=== PATIENT | female | born 1980 ===

== ENCOUNTER 2020-12-03 01:48 | Emergency (ER) | payer OTHER ==
--- NOTE | 2020-12-03 02:10 | EDM.PDOC ---
ED HPI GENERAL MEDICAL PROBLEM - General Chief Complaint: Lower Extremity Injury/Pain Stated Complaint: FALL AT WORK, RIGHT LEG PAIN Time Seen by Provider: 12/03/20 02:05 Source of Information: Reports: Patient. Denies: Old Records (No [facility] records available) History Limitations: Reports: No Limitations - History of Present Illness INITIAL COMMENTS - FREE TEXT/NARRATIVE: Patient was brought to the emergency room via transport vehicle from [facility] for evaluation of a Workmen's Compensation injury, which occurred at about 1:05 AM this morning. The patient accidentally tripped over the forks of a forklift landing forward onto her hands and landing on her right side. She complains of 7/10 mid right thigh pain with some difficulty bearing weight and walking. She denies any hip pain, neck/back pain, paresthesias, head injury, neurological deficits, or other complaints or injuries. She has not injured this area in the past. The patient also has some mild abrasions on her palms bilaterally with no history of foreign body, etc. No recent history of abdominal pain, heartburn, nausea, diarrhea, melena, gross hematochezia, or any food intolerance, including fatty foods, etc., although she has just recovered from the stomach flu. The patient also denies any recent fever, cough, wheezing, dyspnea, etc.. Onset: Today, Sudden Onset Date: 12/03/20 Onset Time: 01:05 Duration: Constant Location: Reports: Upper Extremity, Left, Upper Extremity, Right, Lower Extremity, Right. Denies: Head, Face, Neck, Chest, Abdomen, Back, Pelvis, Lower Extremity, Left, Radiates to Quality: Reports: Ache Severity: Moderate Improves with: Reports: Rest Worsens with: Reports: Movement Context: Reports: Other (As above). Denies: Sick Contact, Trauma Associated Symptoms: Denies: Confusion, Chest Pain, Cough, Diaphoresis, Fever/Chills, Headaches, Loss of Appetite, Malaise, Nausea/Vomiting, Seizure, Shortness of Breath, Syncope, Weakness Treatments ELECTRICAL TECHNICIAN: Reports: Cold Therapy Right Upper Leg Pain Score (Numeric/FACES): 7 - Related Data Allergies Allergy/AdvReac Type Severity Reaction Status Date / Time No Known Drug Allergies Allergy Other Verified 12/03/20 01:49 Home Meds: Home Meds . [No Known Home Meds] 12/03/20 [History] Past Medical History HEENT History: Reports: Impaired Vision, Other (See Below) Other HEENT History: The patient was glasses Cardiovascular History: Reports: None. Denies: Heart Murmur, Hypertension Respiratory History: Reports: None. Denies: Asthma, COPD CERTIFIED MEDICAL CODER History: Reports: , Spontaneous : 7 Para: 5 LMP (Approximate): Other (See Below) Other CERTIFIED MEDICAL CODER History: Normal LMP 1 week ago. SAB x2 requiring D&Cs. Otherwise, full term without complications during pregnancies or deliveries. Musculoskeletal History: Reports: None. Denies: Arthritis, Back Pain, Chronic, Fracture, Neck Pain, Chronic, Osteoarthritis Neurological History: Reports: Vertigo Endocrine/Metabolic History: Reports: Obesity/BMI 30+. Denies: Diabetes, Gestational, Diabetes, Type I, Diabetes, Type II, Diabetes Mellitus, Type 3c, IDDM Oncologic (Cancer) History: Reports: Hodgkin's Lymphoma, Other (See Below) Other Oncologic History: Hodgkin's lymphoma in her 20s currently in remission. - Past Surgical History Female Surgical History: Reports: D&C, Dilitation & Evacuation, Other (See Below). Denies: Section, Tubal Ligation Other Female Surgeries/Procedures: D&Cs x2 secondary to SABs. Social & Family History - Tobacco Use Tobacco Use Status *Q: Current Every Day Tobacco User Tobacco Use Within Last Twelve Months: Cigarettes Years of Tobacco use: 29 Packs/Tins Daily: 0.5 Packs/Tins Daily Comment: Started smoking at age 11 with maximum use of 0.75 packs/day. Used Tobacco, but Quit: No Smoking Cessation Information Provided To Patient: Yes Second Hand Smoke Exposure: Yes Source of Second Hand Smoke Exposure: smokes Second Hand Smoke Education Provided: Yes - Living Situation & Occupation Living situation: Reports: , with Family Occupation: Employed ([employer]) Review of Systems - Review of Systems Review Of Systems: Comprehensive ROS is negative, except as noted in HPI. ED EXAM, GENERAL - Physical Exam Exam: See Below Exam Limited By: No Limitations General Appearance: Alert, WD/WN, No Apparent Distress Head: Atraumatic, Normocephalic. No: Facial Swelling, Facial Tenderness, Sinus Tenderness Neck: Normal Inspection, Supple, Non-Tender, Full Range of Motion. No: Lymphadenopathy (L), Lymphadenopathy (R), Thyromegaly Respiratory/Chest: No Respiratory Distress, Lungs Clear, Normal Breath Sounds, No Accessory Muscle Use, Chest Non-Tender. No: Pleural Rub, Retractions Cardiovascular: Normal Peripheral Pulses, Regular Rate, Rhythm, No Edema, No Gallop, No JVD, No Murmur, No Rub. No: Gallop/S3, Gallop/S4, Friction Rub Peripheral Pulses: 2+: Radial (L), Radial (R), Dorsalis Pedis (R) GI/Abdominal: Normal Bowel Sounds, Soft, Non-Tender, No Organomegaly, No Distention, No Abnormal Bruit, No Mass, Pelvis Stable, Other (Obese). No: Guarding (Female) Exam: Deferred Rectal (Female) Exam: Deferred Back Exam: Normal Inspection, Full Range of Motion. No: CVA Tenderness (L), CVA Tenderness (R), Muscle Spasm Extremities: No Pedal Edema, Normal Capillary Refill, Leg Pain (Mild palpation pain over the mid lateral right femur region with minimal localized swelling and no significant ecchymosis, deformity, crepitation, or evidence of fracture. No evidence of injury to the right knee, hip, ankle, etc.. ), Limited Range of Motion (Mild right leg), Other (Mild abrasions over the palms bilaterally with no evidence of foreign body, deformity, crepitation, etc.). No: Xiao's Sign Neurological: Alert, Oriented, CN II-XII Intact, Normal Cognition, Normal Gait, Normal Reflexes, No Motor/Sensory Deficits Psychiatric: Normal Affect, Normal Mood Skin Exam: Warm, Dry, Normal Color, No Rash, Ecchymosis (As above), Wound/Incision (As above). No: Diaphoretic Lymphatic: No Adenopathy Course - Vital Signs Last Recorded V/S: Last Vital Signs Temp 36.3 C 12/03/20 01:51 Pulse 78 12/03/20 01:51 Resp 12 12/03/20 01:51 BP 121/79 12/03/20 01:51 Pulse Ox 100 12/03/20 01:51 Vital Signs - 24 hr 12/03/20 01:51 Temperature [ 36.3 C Temporal] Pulse, 78 Peripheral [ Right Pulse Oximetry] Respiratory 12 Rate Blood Pressure 121/79 [Left Upper Arm ] O2 Sat by Pulse 100 Oximetry - Orders/Labs/Meds Labs: None Meds: None - Radiology Interpretation Free Text/Narrative:: X-rays of the right femur, 2 views, shows no evidence of fracture, dislocation, etc. Mild osteoarthritic changes noted. Departure - Departure Time of Disposition: 03:00 Disposition: Home, Self-Care 01 Condition: Good Clinical Impression: Multiple abrasions, Tobacco abuse counseling Contusion Qualifiers: Encounter type: initial encounter Contusion area: hand Laterality: right Qualified Code(s): S60.221A - Contusion of right hand, initial encounter - Discharge Information *PRESCRIPTION DRUG MONITORING PROGRAM REVIEWED*: Not Applicable *COPY OF PRESCRIPTION DRUG MONITORING REPORT IN PATIENT GARRY: Not Applicable Instructions: Steps to Quit Smoking, [id number], Crutch Use, Adult, [id number], Health Risks of Smoking, Contusion, [id number] Referrals: Loree Miles PA-C [Primary Care Provider] - Forms: ED Department Discharge Additional Instructions: 1. Followup with your regular provider in 7 days as directed for reevaluation and change of your work restrictions. You may follow-up with your regular provider sooner than this, if you feel you can perform your normal work duties. Bring these discharge instructions with you to that visit. 2. BenGay or equivalent, heating pad, and/or ice packs as directed. 3. Antibacterial soap wash/soak with subsequent antibacterial dressing such as Neosporin, etc. as directed 2 times per day until the wound sites completely heals. Keep the area clean and dry with activity restrictions as discussed. Never use hydrogen peroxide for wound care. 4. Tylenol 650 mg by mouth every 4 hours and/or OTC ibuprofen 2-3 tabs by mouth every 6 hours with food as directed./needed. You may stagger these medications for 48-72 hours only, which essentially means that you are receiving a pain medication about every 2 hours. 5. Immediately after this visit verify that your cellular telephone's voicemail has been activated and is empty. Also verify that your home telephone's answering machine is operating properly and has space to receive messages. Note that it is sometimes necessary for us to be able to contact you at a later date to discuss your medical care. 6. Stop all tobacco use ELIF as directed/per provided information and consider contacting Quit LIne, etc.. 7. Please remember that we are ALWAYS here for you and want to answer any questions you may have. Feel free to call the hospital any time and we call you back ELIF. 8. Work excuse- See Form Sepsis Event Note (ED) - Evaluation Sepsis Screening Result: No Definite Risk - Problem List & Annotations (1) Contusion SNOMED Code(s): 670337364 Code(s): T14.8XXA - OTHER INJURY OF UNSPECIFIED BODY REGION, INITIAL ENCOUNTER Status: Acute Priority: High Onset Date: 12/03/20 Annotation/Comment:: Minor contusion of the right lateral femur region with no evidence of significant injury. Symptomatic relief as per discharge instructions. Activity restrictions were discussed. [employer] work excuse and Workmen's Compensation forms were completed. Crutches were provided. Qualifiers: Encounter type: initial encounter Contusion area: hand Laterality: right Qualified Code(s): S60.221A - Contusion of right hand, initial encounter (2) Multiple abrasions SNOMED Code(s): 460229008, 204209337 Code(s): T07.XXXA - UNSPECIFIED MULTIPLE INJURIES, INITIAL ENCOUNTER Status: Acute Onset Date: 12/03/20 Annotation/Comment:: Minor palm abrasions bilaterally, right greater than left. No evidence of foreign body or need for repair. (3) Tobacco abuse counseling SNOMED Code(s): 568827919, 658240047, 547046951 Code(s): Z71.6 - TOBACCO ABUSE COUNSELING Status: Chronic Priority: Medium Annotation/Comment:: Tobacco cessation strongly encouraged with information provided at discharge - Problem List Review Problem List Initiated/Reviewed/Updated: Yes - Assessment/Plan Assessment:: As above Plan: As above. Extensive precautions were given to the patient, who is in agreement with the treatment plan. See Patient Instructions for further treatment and plan.
== END 2020-12-03 03:00 | disposition home or self-care (01) ==
LOC: LL.ED 01:48
DX: S60.221A Contusion of right hand, initial encounter (principal); E66.9 Obesity, unspecified; Z68.26 Body mass index [BMI] 26.0-26.9, adult; Z71.6 Tobacco abuse counseling; Z72.0 Tobacco use; W01.0XXA Fall on same level from slipping, tripping and stumbling without subsequent striking against object, initial encounter; Y99.0 Civilian activity done for income or pay
CPT/HCPCS: 99283

== ENCOUNTER 2022-04-27 22:10 | Emergency (ER) | payer SELFPAY ==
[2022-04-27] MEDS ORDERED: traMADol 50 MG Tab PO ONE (22:20)
[2022-04-27] MEDS ORDERED: predniSONE 20 MG Tab PO ONE (22:20)
== END 2022-04-27 22:35 | disposition home or self-care (01) ==
LOC: LL.ED 22:10
DX: S99.921A Unspecified injury of right foot, initial encounter (principal); X50.0XXA Overexertion from strenuous movement or load, initial encounter
CPT/HCPCS: 99283; A9270-GY; J7512

== ENCOUNTER 2022-05-08 21:05 | Emergency (ER) | payer MEDICAID ==
[2022-05-08 22:03] LABS: CORONAVIRUS COVID-19 NAA NEGATIVE (NEGATIVE); RESPIRATORY SYNCYTIAL VIR NAA NEGATIVE (NEGATIVE)
== END 2022-05-08 22:18 | disposition home or self-care (01) ==
LOC: LL.ED 21:05
DX: B34.9 Viral infection, unspecified (principal); E66.9 Obesity, unspecified; Z68.26 Body mass index [BMI] 26.0-26.9, adult; Z20.822 Contact with and (suspected) exposure to COVID-19
CPT/HCPCS: 0241U; 71046; 99283

== ENCOUNTER 2022-06-13 17:47 | Emergency (ER) | payer MEDICAID ==
[2022-06-13] MEDS ORDERED: Phenazopyridine 95 MG Tab PO STA (18:14)
[2022-06-13] MEDS ORDERED: Cefdinir 300 MG Cap PO ONE (18:20)
== END 2022-06-13 18:52 | disposition home or self-care (01) ==
LOC: LL.ED 17:47 → SUPCPDRO 17:47 → LL.ED 18:52
DX: N39.0 Urinary tract infection, site not specified (principal); E66.9 Obesity, unspecified; Z68.25 Body mass index [BMI] 25.0-25.9, adult; Z88.0 Allergy status to penicillin; Z79.899 Other long term (current) drug therapy
CPT/HCPCS: 81001; 87086; 87186; 99283; 99284; A9270-GY

== ENCOUNTER 2025-04-27 10:50 | Emergency (ER) | payer MEDICAID | END 2025-04-27 11:15 | disposition home or self-care (01) | LOC: LL.ED 10:50 | DX: B02.9 Zoster without complications (principal); Z88.0 Allergy status to penicillin; Z79.899 Other long term (current) drug therapy | CPT/HCPCS: 99282; 99283 ==